=== PATIENT | female | born 2000 | race Two or more races ===

== ENCOUNTER 2023-05-27 16:23 | Emergency (ER) | payer SELFPAY ==
[2023-05-27] MEDS ORDERED: Sodium Chloride 0.9% 10 ML Syringe FLUSH PRN (16:29)
[2023-05-27 16:42] LABS: BASOPHILS ABSOLUTE AUTO 0.02 10^3/uL (0.00-0.10); BASOPHILS PERCENT AUTO 0.2 % (0.0-1.0); EOSINOPHILS ABSOLUTE AUTO 0.15 10^3/uL (0.10-0.30); EOSINOPHILS PERCENT AUTO 1.3 % (1.0-3.0); HEMATOCRIT 39.5 % (37.0-47.0); HEMOGLOBIN 13.5 g/dL (12.0-16.0); IMMATURE GRAN ABSOLUTE AUTO 0.02 10^3/uL (0.00-0.50); IMMATURE GRAN PERCENT AUTO 0.2 % (0.0-5.0); LYMPHOCYTES ABSOLUTE AUTO 2.11 10^3/uL (1.00-4.00); LYMPHOCYTES PERCENT AUTO 18.2 % (20.0-40.0); MEAN CORPUSCULAR HEMOGLOBIN 30.9 pg (27.0-31.0); MEAN CORPUSCULAR HGB CONC 34.2 g/dL (32.0-36.0); MEAN CORPUSCULAR VOLUME 90.4 fL (82.0-92.0); MONOCYTES ABSOLUTE AUTO 0.57 10^3/uL (0.10-0.80); MONOCYTES PERCENT AUTO 4.9 % (2.0-8.0); NEUTROPHILS ABSOLUTE AUTO 8.71 10^3/uL (2.50-7.00); NEUTROPHILS PERCENT AUTO 75.2 % (50.0-70.0); PLATELET COUNT,PLT 340 10^3/uL (150-400); RED BLOOD CELL COUNT 4.37 10^6/uL (3.80-5.50); RED CELL DISTRIBUTION WIDTH 13.1 % (11.5-14.5); WHITE BLOOD CELL COUNT,WBC 11.58 10^3/uL (5.00-10.00)
[2023-05-27 16:52] VITALS: BP 123/82; PULSE 91
[2023-05-27 17:06] LABS: APPEARANCE,URINE CLEAR (CLEAR); BILIRUBIN,URINE NEGATIVE (NEGATIVE); COLOR,URINE LIGHT YELLOW (YELLOW); GLUCOSE,URINE NEGATIVE (NEGATIVE); KETONES,URINE TRACE mg/dL (NEGATIVE); LEUKOCYTE ESTERASE,URINE NEGATIVE (NEGATIVE); NITRITE,URINE NEGATIVE (NEGATIVE); OCCULT BLOOD,URINE TRACE-INTACT (NEGATIVE); PROTEIN,URINE NEGATIVE (NEGATIVE); UROBILINOGEN,URINE 0.2 E.U./dL (0.2-1.0)
[2023-05-27 17:08] LABS: BACTERIA,URINE RARE /HPF (NONE TO FEW); EPITHELIAL CELLS,URINE FEW /LPF; RBC,URINE 0-5 /HPF (0-5); WBC,URINE 0-5 /HPF (0-5)
[2023-05-27 17:20] LABS: ALBUMIN 3.84 g/dL (3.40-5.00); ANION GAP 15.1 mmol/L (5-15); BILIRUBIN TOTAL 0.2 mg/dL (0.2-1.0); CALCIUM 8.9 mg/dL (8.7-10.3); CARBON DIOXIDE,CO2 26.1 mmol/L (21.0-32.0); CREATININE 0.6 mg/dL (0.51-1.17); EST CRCL DRUG DOSING (CG) 104.74 mL/min; POTASSIUM,K 4.2 mmol/L (3.5-5.1); PROTEIN TOTAL,TP 7.6 g/dL (6.4-8.2)
[2023-05-27] MEDS: Sodium Chloride 0.9% 50 ML IV SCH (18:38)
[2023-05-27] MEDS: Iopamidol 755 Mg/ML 100 ML Bottle IV ONE (18:39)
== END 2023-05-27 19:16 | disposition home or self-care (01) ==
LOC: KA.ED 16:23
DX: K59.00 Constipation, unspecified (principal)
CPT/HCPCS: 36415; 74177; 80053; 81001; 81025; 85025; 99284; J3490; Q9967